=== PATIENT | female | born 1945 | race Caucasian/White ===

== ENCOUNTER 2020-12-11 10:42 | Emergency (ER) | payer MEDICARE, SELFPAY ==
--- NOTE | ~2020-12-11 | XR_ITS ---
EXAMINATION: LUMBAR SPINE. SACRUM AND COCCYX. CLINICAL INFORMATION: Injury. Pain. Rule out fracture. COMPARISON: Lumbar spine 10/09/2008. TECHNIQUE: Lumbar spine 3 views. Sacrum/coccyx 3 views. FINDINGS: Sacrum and coccyx: There is no visible acute fracture, subluxation or bony abnormality involving the sacrum or coccyx.. Pre and post sacral soft tissues are normal. SI joints are symmetrical and normal. Lumbar spine: There is maintained lumbar lordosis. There is superior endplate deformity L3 vertebra likely new since 11/27/2010. Rest of the vertebral heights, alignment is normal. No visible acute fracture, dislocation or lytic process seen. The paravertebral soft tissues are normal. XR/XR lumbar spine 2-3V IMPRESSION: Mild L3 superior endplate deformity new since 11/27/2010 lumbar spine exam. Rest of the lumbar spine is unremarkable. Unremarkable sacrum and coccyx exam.
--- NOTE | ~2020-12-11 | XR_ITS ---
EXAMINATION: LUMBAR SPINE. SACRUM AND COCCYX. CLINICAL INFORMATION: Injury. Pain. Rule out fracture. COMPARISON: Lumbar spine 10/09/2008. TECHNIQUE: Lumbar spine 3 views. Sacrum/coccyx 3 views. FINDINGS: Sacrum and coccyx: There is no visible acute fracture, subluxation or bony abnormality involving the sacrum or coccyx.. Pre and post sacral soft tissues are normal. SI joints are symmetrical and normal. Lumbar spine: There is maintained lumbar lordosis. There is superior endplate deformity L3 vertebra likely new since 11/27/2010. Rest of the vertebral heights, alignment is normal. No visible acute fracture, dislocation or lytic process seen. The paravertebral soft tissues are normal. XR/XR sacrum coccyx min 2V IMPRESSION: Mild L3 superior endplate deformity new since 11/27/2010 lumbar spine exam. Rest of the lumbar spine is unremarkable. Unremarkable sacrum and coccyx exam.
[2020-12-11 10:55] VITALS: BP 125/73; PULSE 97; RESP 18; TEMP 37.1; O2SAT 97; BMI 29.2
--- NOTE | 2020-12-11 11:25 | ED.BACK ---
HPI - Back Pain/Injury General Chief Complaint: Back Pain/Injury Stated Complaint: Back pain Time Seen by Provider: 12/11/20 11:25 History of Present Illness HPI Narrative: Patient has low back pain that began several days ago when she twisted her back attempting to help a family member who did fall in on the floor, there is not any incontinence, no change to bowel or bladder no fever no chills, no radiation of pain, no numbness weakness or tingling Related Data Previous Rx's Medication Instructions Recorded lidocaine 1 patch TOPICAL DAILY PRN #15 ea 12/11/20 Allergies Allergy/AdvReac Type Severity Reaction Status Date / Time acetaminophen [ACETAMINOPHEN] Allergy Unknown UNKNOWN Verified 12/11/20 10:55 aspirin Allergy Unknown Verified 12/11/20 10:55 Review of Systems Review of Systems: Positive for back pain Negatives are no head injury no headache no fever no chills no dizziness no weakness no fainting no feeling faint no neck pain no chest pain no abdominal pain no nausea or vomiting no numbness weakness or tingling, no changes to bowel or bladder no dysuria no frequency no incontinence no skin rash Yes all other systems are reviewed and are negative [facility] Past Medical History Source: nursing notes reviewed Social History Social History Advance Directives: No Advance Directives Information Provided: No Physical Exam Vital Signs: Vital Signs: Last Vital Signs Temp 99 F 12/11/20 13:16 Pulse 74 12/11/20 13:16 Resp 14 12/11/20 13:16 BP 140/67 H 12/11/20 13:16 Pulse Ox 99 12/11/20 13:16 Body Mass Index 29.2 General appearance no acute distress The head is normocephalic atraumatic Neck is supple nontender The chest is clear to auscultation bilateral, no chest wall tenderness, The heart no murmur Abdomen soft nontender The back had lower lumbar tenderness including the midline, no focal bony tenderness no deformities no wounds lacerations or ecchymosis, there was no CVA tenderness Extremities full range of motion x4 Skin no rash Neuro no focal motor or sensory deficit Course Course Course Narrative: X-ray showed a possible mild L3 endplate deformity possibly a new compression fracture Patient is able to ambulate and has no neurologic deficit and is discharged to follow with primary doctor Discharge Plan Discharge Clinical Impression: Back pain Patient Disposition: Home, Self-Care Additional Instructions: X-ray showed a possible compression fracture in the area of pain This is something that usually gets better by itself, your doctor may order physical therapy We will try a lidocaine patch for pain relief Return any time any worse condition or any concerns Prescriptions: New lidocaine 5 % adhesive patch,medicated 1 patch topical DAILY PRN (Reason: pain) Qty: 15 RF: 0 Interventions: ED Discharge Assessment Last Done: 12/11/20 13:44 Discharge Date/Time: 12/11/20 13:45
[2020-12-11 13:16] VITALS: BP 140/67; PULSE 74; RESP 14; TEMP 37.2; O2SAT 99
== END 2020-12-11 13:45 | disposition home or self-care (01) ==
PROVIDERS: Emergency Provider Emergency Medicine; PCP Internal Medicine
DX: M54.5 Low back pain (principal); M53.3 Sacrococcygeal disorders, not elsewhere classified
CPT/HCPCS: 72100; 72220; 99284